=== PATIENT | female | born 2005 | race Caucasian/White ===

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

== ENCOUNTER → 2024-07-14 14:04 | Outpatient (BNVA) | payer OTHER, SELFPAY | PROVIDERS: Family Provider Nurse Practitioner; PCP Family Medicine; Visit Provider Specialist | DX: M25.512 Pain in left shoulder (principal); M25.511 Pain in right shoulder; M89.8X1 Other specified disorders of bone, shoulder | CPT/HCPCS: 73030 ==